=== PATIENT | male | born 1980 | race Hispanic/Latino ===

== ENCOUNTER 2018-08-06 13:25 | Emergency (ER) | payer OTHER ==
[2018-08-06] MEDS ORDERED: KETOROLAC TROMETHAMINE 60 MG/2 ML VIAL ONE (14:23)
== END 2018-08-06 14:32 | disposition home or self-care (01) ==
LOC: EDH 13:25
DX: S67.21XA Crushing injury of right hand, initial encounter (principal); Z88.0 Allergy status to penicillin; W23.0XXA Caught, crushed, jammed, or pinched between moving objects, initial encounter; Y93.89 Activity, other specified; Y92.810 Car as the place of occurrence of the external cause; Y99.8 Other external cause status
CPT/HCPCS: 73130; 96372; 99283; J1885

== ENCOUNTER 2020-01-25 16:00 | Emergency (ER) | payer BC, OTHER | END 2020-01-25 16:24 | LOC: EDH 16:00 | DX: I10 Essential (primary) hypertension (principal); Z88.0 Allergy status to penicillin ==